=== PATIENT | female | born 1955 | race Caucasian/White ===

== ENCOUNTER 2023-03-06 10:01 | Emergency (ER) | payer OTHER ==
--- NOTE | 2023-03-06 10:14 | ED Physician Documentation ---
PD HPI URI - Stated complaint Stated Complaint: C+ SOA/CONGESTION - Chief complaint Chief Complaint: Resp - History obtained from History obtained from: Patient - History of Present Illness Timing - onset: How many days ago (2-3) Timing duration: Days Timing details: Gradual onset, Still present Associated symptoms: Chills. No: Fever Contributing factors: No: Sick contact, Travel, COPD / asthma Improves by: Rest Worsened by: Activity Similar symptoms before: Has not had sx before Recently seen: Clinic (had COVID booser 2 weeks ago. Onset of URI and cough symptoms 2-3 days ago. PPositive home COVID test yesterday. Having increased cough/dyspnea today.) Review of Systems Constitutional: reports: Chills, Myalgias Nose: reports: Congestion Throat: denies: Sore throat Cardiac: denies: Chest pain / pressure Respiratory: reports: Dyspnea, Cough GI: reports: Diarrhea (mild loose stools.). denies: Vomiting PD PAST MEDICAL HISTORY - Past Medical History Cardiovascular: None Respiratory: None Endocrine/Autoimmune: None - Present Medications Home Medications: Ambulatory Orders Medication Instructions Recorded Confirmed Albuterol Sulf [Ventolin Hfa 2 puffs INH QID #1 each 03/06/23 Inhaler] Ferrous Sulfate [Feosol] 325 mg PO DAILY PM 03/06/23 03/06/23 guaiFENesin [Mucinex] 600 mg PO BID #20 tablet 03/06/23 guaiFENesin/CODEINE [Robitussin AC] 10 ml PO Q6H PRN #180 ml 03/06/23 - Allergies Allergies/Adverse Reactions: Allergies Allergy/AdvReac Type Severity Reaction Status Date / Time No Known Drug Allergies Allergy Verified 03/06/23 10:13 PD ED PE NORMAL - Vitals Vital signs reviewed: Yes - General General: Alert and oriented X 3, No acute distress, Well developed/nourished - HEENT HEENT: Pharynx benign - Neck Neck: Supple, no meningeal sign, No adenopathy - Cardiac Cardiac: RRR, No murmur - Respiratory Respiratory: No respiratory distress. No: Clear bilaterally (some exp wheezes/congestion left mid field. ) - Abdomen Abdomen: Soft, Non tender - Derm Derm: Normal color, Warm and dry - Extremities Extremities: No edema, No calf tenderness / cord - Neuro Neuro: Alert and oriented X 3, No motor deficit, Normal speech Results - Vitals Vitals: Vital Signs - 24 hr 03/06/23 03/06/23 03/06/23 10:10 11:15 11:55 Temperature 38.4 C H 38.0 C H Heart Rate 72 68 78 Respiratory 20 18 18 Rate Blood Pressure 128/64 113/68 O2 Saturation 96 94 Oxygen O2 Source Room air - Rads (name of study) chest xray Relevant Findings:: Prelim report reviewed, EMP independent interpretation of test (no infiltrates), See rad report PD Medical Decision Making - ED course Complexity details: reviewed results (no pneumonia apparent on xray. ), considered differential (patient with COVID symtpoms for 2-3 days. Has some wheezing/congestion and the cough/congestion affecting her breathing/ hard to sleep. ), d/w patient Departure - Departure Disposition: 01 Home, Self Care Clinical Impression: COVID-19, Upper respiratory infection Condition: Stable Record reviewed to determine appropriate education?: Yes Instructions: ED URI Viral W Wheezing Prescriptions: guaiFENesin [Mucinex] 600 mg PO BID #20 tablet guaiFENesin/CODEINE [Robitussin AC] 10 ml PO Q6H PRN #180 ml PRN Reason: Cough Albuterol Sulf [Ventolin Hfa Inhaler] 2 puffs INH QID #1 each Comments: Your chest x-ray is clear without any signs of pneumonia. You do obviously have a lot of bronchial congestion and phlegm. Your airflow and breathing along with the congestion can be improved typically with the albuterol inhaler 2 to 3 puffs 4 times daily and extra times if needed. Stay well-hydrated. Tylenol or ibuprofen if needed for fevers or pains. You can add guaifenesin to help with some of the sputum production and cough. Add codeine cough medicine if needed particularly at night and such to help with cough suppression for sleep etc. The antiviral medications such as Paxlovid are not having as much effectiveness on current strains of COVID and are commonly not advocated. Anticipate symptoms from COVID for commonly is 7 to 10 days. The worst is typically the first 5 or 6 days. There can be persistent cough and general aches and fatigue that lasts for a month or more. Follow-up with your primary care if not considerably improved fairly close to normal within the next couple of weeks. Return if worsening. I sent your prescription to [facility] pharmacy in [place]. Discharge Date/Time: 03/06/23 12:00
[2023-03-06] MEDS ORDERED: ALBUTEROL 1 PUFF INH STA (10:46)
--- NOTE | 2023-03-06 11:05 | XRAY Report ---
PROCEDURE: Chest 1 View X-Ray INDICATIONS: chest pain TECHNIQUE: One view of the chest was acquired. COMPARISON: None. FINDINGS: Surgical changes and devices: None. Lungs and pleura: No pleural effusions or pneumothorax. Lungs are clear. Mediastinum: Mediastinal contours appear normal. Heart size is normal. Bones and chest wall: No suspicious bony lesions. Overlying soft tissues appear unremarkable. IMPRESSION: No acute cardiopulmonary process. Reviewed by: Hal Sánchez on 03/06/2023 11:04 AM PDT Approved by: Hal Sánchez on 03/06/2023 11:04 AM PDT Station ID: [id number]
[2023-03-06 11:56] VITALS: BP 113/68
== END 2023-03-06 12:00 | disposition home or self-care (01) ==
LOC: ED 10:01
DX: U07.1 COVID-19 (principal); J06.9 Acute upper respiratory infection, unspecified
CPT/HCPCS: 94640; 99283; 99284